=== PATIENT | male | born 1960 | race Caucasian/White ===

== ENCOUNTER 2025-02-14 10:47 | Outpatient (CLI) | payer MEDICARE, SELFPAY | END 2025-02-14 10:48 | disposition home or self-care (01) | LOC: NFLDREF 02-19 20:45 | PROVIDERS: PCP Family Medicine; Visit Provider Family Medicine | DX: I10 Essential (primary) hypertension (principal); E11.9 Type 2 diabetes mellitus without complications; E78.5 Hyperlipidemia, unspecified; I48.20 Chronic atrial fibrillation, unspecified | CPT/HCPCS: 80053 ==

== ENCOUNTER 2025-02-17 09:26 | Outpatient (CLI) | payer MEDICARE, SELFPAY | END 2025-02-17 09:27 | disposition home or self-care (01) | PROVIDERS: PCP Family Medicine; Referring Provider Family Medicine; Visit Provider Nurse Practitioner Family | DX: I87.313 Chronic venous hypertension (idiopathic) with ulcer of bilateral lower extremity (principal); I87.2 Venous insufficiency (chronic) (peripheral); E11.622 Type 2 diabetes mellitus with other skin ulcer; L97.812 Non-pressure chronic ulcer of other part of right lower leg with fat layer exposed; L97.822 Non-pressure chronic ulcer of other part of left lower leg with fat layer exposed | CPT/HCPCS: 97597; G0463 ==

== ENCOUNTER 2025-03-02 10:46 | Outpatient (CLI) | payer MEDICARE, SELFPAY | END 2025-03-02 10:47 | disposition home or self-care (01) | LOC: WOUND 10:46 | PROVIDERS: PCP Family Medicine; Visit Provider Nurse Practitioner Family | DX: I87.312 Chronic venous hypertension (idiopathic) with ulcer of left lower extremity (principal); I87.2 Venous insufficiency (chronic) (peripheral); I89.0 Lymphedema, not elsewhere classified; E11.622 Type 2 diabetes mellitus with other skin ulcer; L97.822 Non-pressure chronic ulcer of other part of left lower leg with fat layer exposed | CPT/HCPCS: 11042 ==

== ENCOUNTER 2025-03-09 10:50 | Outpatient (CLI) | payer MEDICARE, SELFPAY | END 2025-03-09 10:51 | disposition home or self-care (01) | LOC: WOUND 10:50 | PROVIDERS: PCP Family Medicine; Visit Provider Nurse Practitioner Family | DX: I87.312 Chronic venous hypertension (idiopathic) with ulcer of left lower extremity (principal); I87.2 Venous insufficiency (chronic) (peripheral); I89.0 Lymphedema, not elsewhere classified; E11.622 Type 2 diabetes mellitus with other skin ulcer; L97.222 Non-pressure chronic ulcer of left calf with fat layer exposed; L97.822 Non-pressure chronic ulcer of other part of left lower leg with fat layer exposed | CPT/HCPCS: 11042; 97597 ==

== ENCOUNTER 2025-03-10 11:14 | Outpatient (CLI) | payer MEDICARE, SELFPAY | END 2025-03-10 11:15 | disposition home or self-care (01) | LOC: FRMREF 11:14 | PROVIDERS: PCP Family Medicine; Visit Provider Family Medicine | DX: E11.9 Type 2 diabetes mellitus without complications (principal); I10 Essential (primary) hypertension; Z12.5 Encounter for screening for malignant neoplasm of prostate | CPT/HCPCS: 80053; 82043; 82570; G0103 ==

== ENCOUNTER 2025-03-16 10:51 | Outpatient (CLI) | payer MEDICARE, SELFPAY | END 2025-03-16 10:52 | disposition home or self-care (01) | LOC: WOUND 10:51 | PROVIDERS: PCP Family Medicine; Visit Provider Nurse Practitioner Family | DX: I87.312 Chronic venous hypertension (idiopathic) with ulcer of left lower extremity (principal); I87.2 Venous insufficiency (chronic) (peripheral); I89.0 Lymphedema, not elsewhere classified; E11.622 Type 2 diabetes mellitus with other skin ulcer; L97.822 Non-pressure chronic ulcer of other part of left lower leg with fat layer exposed | CPT/HCPCS: 11042 ==

== ENCOUNTER 2025-03-23 10:58 | Outpatient (CLI) | payer MEDICARE, SELFPAY | END 2025-03-23 10:59 | disposition home or self-care (01) | LOC: WOUND 10:58 | PROVIDERS: PCP Family Medicine | DX: I87.312 Chronic venous hypertension (idiopathic) with ulcer of left lower extremity (principal); I87.2 Venous insufficiency (chronic) (peripheral); I89.0 Lymphedema, not elsewhere classified; E11.622 Type 2 diabetes mellitus with other skin ulcer; L97.822 Non-pressure chronic ulcer of other part of left lower leg with fat layer exposed | CPT/HCPCS: G0463 ==

== ENCOUNTER 2025-03-30 10:48 | Outpatient (CLI) | payer MEDICARE, SELFPAY | END 2025-03-30 10:49 | disposition home or self-care (01) | LOC: WOUND 10:48 | PROVIDERS: PCP Family Medicine; Visit Provider Nurse Practitioner Family | DX: I87.312 Chronic venous hypertension (idiopathic) with ulcer of left lower extremity (principal); I87.2 Venous insufficiency (chronic) (peripheral); I89.0 Lymphedema, not elsewhere classified; E11.622 Type 2 diabetes mellitus with other skin ulcer; L97.822 Non-pressure chronic ulcer of other part of left lower leg with fat layer exposed | CPT/HCPCS: G0463 ==

== ENCOUNTER 2025-04-06 10:50 | Outpatient (CLI) | payer MEDICARE, SELFPAY | END 2025-04-06 10:51 | disposition home or self-care (01) | LOC: WOUND 10:50 | PROVIDERS: PCP Family Medicine; Visit Provider Nurse Practitioner Family | DX: I87.312 Chronic venous hypertension (idiopathic) with ulcer of left lower extremity (principal); I87.2 Venous insufficiency (chronic) (peripheral); I89.0 Lymphedema, not elsewhere classified; E11.622 Type 2 diabetes mellitus with other skin ulcer; L97.822 Non-pressure chronic ulcer of other part of left lower leg with fat layer exposed | CPT/HCPCS: G0463 ==

== ENCOUNTER 2025-04-13 10:53 | Outpatient (CLI) | payer MEDICARE, SELFPAY | END 2025-04-13 10:54 | disposition home or self-care (01) | LOC: WOUND 10:53 | PROVIDERS: PCP Family Medicine | DX: I87.312 Chronic venous hypertension (idiopathic) with ulcer of left lower extremity (principal); I87.2 Venous insufficiency (chronic) (peripheral); I89.0 Lymphedema, not elsewhere classified; E11.622 Type 2 diabetes mellitus with other skin ulcer; L97.822 Non-pressure chronic ulcer of other part of left lower leg with fat layer exposed | CPT/HCPCS: 11042 ==

== ENCOUNTER 2025-04-20 10:48 | Outpatient (CLI) | payer MEDICARE, SELFPAY | END 2025-04-20 10:49 | disposition home or self-care (01) | LOC: WOUND 10:48 | PROVIDERS: PCP Family Medicine; Visit Provider Nurse Practitioner Family | DX: Z09 Encounter for follow-up examination after completed treatment for conditions other than malignant neoplasm (principal); Z87.2 Personal history of diseases of the skin and subcutaneous tissue; Z86.31 Personal history of diabetic foot ulcer; I87.2 Venous insufficiency (chronic) (peripheral); I89.0 Lymphedema, not elsewhere classified | CPT/HCPCS: G0463 ==

== ENCOUNTER 2025-05-08 13:45 | Outpatient (CLI) | payer MEDICARE, SELFPAY ==
--- NOTE | 2025-05-08 13:45 | CRLHL7_ITS ---
For Patients: As a result of the Century Cures Act, medical imaging exams and procedure reports are released immediately into your electronic medical record. You may view this report before your referring provider. If you have questions, please contact your health care provider. EXAM: MRI OF THE RIGHT SHOULDER WITHOUT CONTRAST CLINICAL INDICATION: Right shoulder pain. COMPARISON PLAIN FILMS: 04/28/2025. COMPARISON CROSS-SECTIONAL IMAGING STUDIES: None available at time of interpretation. TECHNICAL: Axial, sagittal oblique and coronal oblique T1, PD, PD FS and T2-weighted images. Shoulder surface coil. FINDINGS: ROTATOR CUFF TENDONS AND MUSCLES AND DELTOID: Supraspinatus: Mild diffuse thinning the supraspinatus tendon consistent partial-thickness tearing. Mild fraying and fibrillation of the bursal surface. No focal tendon gap. Lkzg-br-umamjhln tendinopathy. No muscle atrophy edema. Infraspinatus: Oekq-ok-bzxbfxse tendinopathy. No tendon tear. No muscle atrophy or edema. Subscapularis: No tendinosis, tendon tearing, muscle atrophy or muscle edema. Teres Minor: Moderate muscle atrophy. No muscle edema. The tendon is intact. Deltoid: No muscle atrophy or edema. BURSA: Subacromial-subdeltoid: Mild edema in the subacromial and subdeltoid bursa. BICEPS TENDON, LONG HEAD: Mild tendinopathy. No tendon tear or medial subluxation. CORACOACROMIAL ARCH: Acromial Morphology: Type 1 acromial morphology. No abnormal lateral or anterior downward sloping of the acromion. Small subacromial enthesophyte. No os acromiale. Acromiohumeral Interval: Normal. Coracohumeral Interval: Normal. ACROMIOCLAVICULAR JOINT REGION: AC Joint: Moderate arthropathy. Small inferior marginal osteophytes. Ligaments: The coracoclavicular ligaments are intact. GLENOHUMERAL JOINT: Joint space: Small joint effusion with minimal synovitis. Humeral Head Articular Cartilage: Full-thickness chondral thinning. Multiple small subchondral cysts and mild subchondral edema. Moderate hypertrophic changes. Glenoid Articular Cartilage: Full-thickness chondral thinning with mild central osseous volume loss. Small amount of subchondral cystic change and subchondral edema. Mild hypertrophic changes. Labrum: Diffuse tear and degeneration. No paralabral cyst. Alignment: Maintained. Capsule: No capsular edema or abnormal capsular thickening. OSSEOUS STRUCTURES: No fracture, marrow edema or marrow replacement process. OTHER FINDINGS: There is no abnormality within the suprascapular or spinoglenoid notches nor within the quadrilateral space. No axillary adenopathy or mass. IMPRESSION: 1. Advanced glenohumeral osteoarthritis. 2. Diffuse thinning of the supraspinatus tendon consistent with a low-grade partial-thickness tear. Mild fraying and fibrillation of the bursal surface. Mild to moderate tendinopathy. 3. Jsfj-yh-beamrmpx infraspinatus tendinopathy. 4. Mild long head of the biceps tendinopathy. 5. Moderate atrophy of the teres minor musculature. The tendon is intact. 6. Diffuse tear and degeneration of the labrum. 7. Moderate arthropathy of the acromioclavicular joint. 8. Small subacromial enthesophyte. 9. Mild edema in the subacromial subdeltoid bursa. Dictated by Jatinder Duenas MD @ 05/09/2025 8:53:38 AM (Electronically Signed)
== END 2025-05-08 13:46 | disposition home or self-care (01) ==
PROVIDERS: PCP Family Medicine; Visit Provider Family Medicine
DX: M25.511 Pain in right shoulder (principal); M19.011 Primary osteoarthritis, right shoulder; M75.101 Unspecified rotator cuff tear or rupture of right shoulder, not specified as traumatic; S43.491A Other sprain of right shoulder joint, initial encounter; S43.431A Superior glenoid labrum lesion of right shoulder, initial encounter
CPT/HCPCS: 73221

== ENCOUNTER 2025-05-18 12:02 | Outpatient (CLI) | payer MEDICARE, SELFPAY ==
--- NOTE | 2025-05-18 13:16 | P.ANES_ITS ---
Anesthesia Charges Start Date/Time Anesthesia Start Date: 05/18/25 Anesthesia Start Time: 12:55 Stop Date/Time Anesthesia Stop Date: 05/18/25 Anesthesia Stop Time: 13:14 Coding CPT Codes CPT Codes: ANES UPR GI NDSC PX NOS - 79024 ([id number]) P3 - PATIENT W/SEVERE SYS DISEASE, QK - DIGITAL COMPUTER OPERATOR 2-4 CNCRNT ANES PROC, QX - BRIDGE MECHANIC SVC W/ MD MED DIRECTION
--- NOTE | 2025-05-18 13:16 | W.ANESCHARGE ---
Anesthesia Charges Start Date/Time Anesthesia Start Date: 05/18/25 Anesthesia Start Time: 12:55 Stop Date/Time Anesthesia Stop Date: 05/18/25 Anesthesia Stop Time: 13:14 Coding CPT Codes CPT Codes: ANES UPR GI NDSC PX NOS - 84232 ([id number]) P3 - PATIENT W/SEVERE SYS DISEASE, QK - AQUACULTURE AND FISHERIES PROFESSOR 2-4 CNCRNT ANES PROC, QX - FORGING ENGINEER SVC W/ MD MED DIRECTION
--- NOTE | 2025-05-18 13:18 | P.ANES_ITS ---
Anesthesia Charges Start Date/Time Anesthesia Start Date: 05/18/25 Anesthesia Start Time: 12:55 Stop Date/Time Anesthesia Stop Date: 05/18/25 Anesthesia Stop Time: 13:14 Coding CPT Codes CPT Codes: ANES UPR GI NDSC PX NOS - 82113 ([id number]) P2 - PATIENT W/MILD SYST DISEASE, QK - BAR TACKER 2-4 CNCRNT ANES PROC, QX - INTERCEPTOR OPERATOR SVC W/ MD MED DIRECTION
--- NOTE | 2025-05-18 13:18 | W.ANESCHARGE ---
Anesthesia Charges Start Date/Time Anesthesia Start Date: 05/18/25 Anesthesia Start Time: 12:55 Stop Date/Time Anesthesia Stop Date: 05/18/25 Anesthesia Stop Time: 13:14 Coding CPT Codes CPT Codes: ANES UPR GI NDSC PX NOS - 34513 ([id number]) P2 - PATIENT W/MILD SYST DISEASE, QK - PROPERTY MAINTENANCE SUPERVISOR 2-4 CNCRNT ANES PROC, QX - NUT CHOPPER SVC W/ MD MED DIRECTION
== END 2025-05-18 12:03 | disposition home or self-care (01) ==
LOC: OP CLINIC 12:03
PROVIDERS: PCP Family Medicine; Visit Provider Surgery
DX: K92.2 Gastrointestinal hemorrhage, unspecified (principal); K22.89 Other specified disease of esophagus
CPT/HCPCS: 00731; 43239; J2704; J3490